=== PATIENT | female | born 2005 | race Caucasian/White ===

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

== ENCOUNTER 2025-02-28 11:52 | Emergency (ER) | payer BC, SELFPAY ==
[2025-02-28 12:00] VITALS: BP 120/78; PULSE 84; RESP 16; TEMP 36.8; O2SAT 99
--- NOTE | 2025-02-28 12:31 | ED.EYEPROB ---
HPI - Eye Problem General Chief complaint: Eye Problems Stated complaint: Eye Irritation/Sinus Infection Symptoms Time Seen by Provider: 02/28/25 12:23 Source: patient and RN notes reviewed Mode of arrival: ambulatory Limitations: no limitations History of Present Illness HPI Narrative: 19-year-old female patient presents today with a 10 day history of nasal congestion and sinus pressure, scratchy throat, sneezing. More recently she has started experiencing left ear clogging. Denies fever or shortness of breath. Yesterday her left eye became reddened and crusty. She has tried some [id number] eyedrops in flushing without much improvement, as well as using Sudafed and DayQuil. No history of asthma. No recent antibiotic use. Related Data Home Medications ?Medication ?Instructions ?Recorded ?Confirmed ?Last Taken ?Type cholecalciferol (vitamin D3) 50 65 mcg PO DAILY 05/11/24 02/28/25 Unknown History mcg (2,000 unit) tablet (D3 DOTS) escitalopram oxalate 20 mg tablet 20 mg PO DAILY 02/28/25 02/28/25 Unknown History ferrous sulfate 325 mg (65 mg 325 mg PO DAILY 02/28/25 02/28/25 Unknown History iron) tablet (iron) mecobalamin (vitamin B12) 1 tablet PO DAILY 02/28/25 02/28/25 Unknown History Allergies Allergy/AdvReac Type Severity Reaction Status Date / Time No Known Allergies Allergy Verified 02/28/25 11:57 [facility] Comments At time of signature, I have reviewed and agree with nursing past medical, surgical, social and family history unless otherwise noted. Please see nursing chart for further information. There is no relevant family history pertinent to the presenting complaint Exam Narrative: GENERAL: Mildly ill-appearing, well-nourished, and in no acute distress. HEAD: Normocephalic, atraumatic. EYES: EOMI. PERRL. Right eye normal. Left eye: Mildly injected conjunctiva. No active drainage. Lids and lashes normal. ENT: Mucous membranes pink and moist. Nares congested with rhinorrhea. TMs normal bilaterally. Throat normal. Uvula midline. NECK: Normal AROM. Supple. No lymphadenopathy. CHEST: No respiratory distress. Clear to auscultation. HEART: Regular rate and rhythm. No murmur appreciated. EXTREMITIES: Normal range of motion. No edema. SKIN: Warm, dry, no rash. Capillary refill normal. Normal skin turgor. NEURO: No focal deficits. Alert and oriented x3. Gait steady. PSYCH: Normal affect. No signs of depression or anxiety. Course Course Level of Care: Express Care Visit Vital Signs Vital signs: Vital Signs Temperature 98.2 F 02/28/25 12:00 Pulse Rate 84 02/28/25 12:00 Respiratory Rate 16 02/28/25 12:00 Blood Pressure 120/78 02/28/25 12:00 Pulse Oximetry 99 02/28/25 12:00 Temperature 98.2 F 02/28/25 12:00 Pulse Rate 84 02/28/25 12:00 Respiratory Rate 16 02/28/25 12:00 Blood Pressure 120/78 02/28/25 12:00 Pulse Oximetry 99 02/28/25 12:00 Reviewed MDM - Eye Problem MDM Narrative Medical decision making narrative: 19-year-old female patient presents today with a 10 day history of nasal congestion and sinus pressure, scratchy throat, sneezing. More recently she has started experiencing left ear clogging. Denies fever or shortness of breath. Yesterday her left eye became reddened and crusty. She has tried some [id number]-kabwntx eyedrops in flushing without much improvement, as well as using Sudafed and DayQuil. No history of asthma. No recent antibiotic use. Upon exam, patient is mildly ill appearing with nasal congestion. Left eye it has mildly injected conjunctiva. Due to persistent symptoms, she will be treated with Augmentin for sinusitis. Due to unilateral injected conjunctiva and crusting of the eye, she will also be treated for bacterial conjunctivitis with Polytrim. Patient agrees with plan. Vital signs stable. Anticipatory guidance given. Differential Diagnosis Differential diagnosis: Likely corneal abrasion, conjunctivitis and other (URI, sinusitis, otitis media, otitis externa, ruptured TM, serous otitis) Critical Care Time Critical Care Time Critical Care Time: No Discharge Plan Discharge Clinical Impression: Bacterial conjunctivitis Sinusitis Qualifiers: Sinusitis location: unspecified location Chronicity: acute Recurrence: non-recurrent Qualified Code(s): J01.90 - Acute sinusitis, unspecified Patient Disposition: Home Condition: Stable Instructions: Antibiotic Form, Sinusitis (ED), Conjunctivitis (ED) Additional Instructions: Please take the Augmentin and use the eyedrops as directed. Wash hands frequently before and after use of the eyedrops pseudo reinfect herself. Use OTC medication for your upper respiratory symptoms as needed. Follow-up with your PCP in 3 days if symptoms are not improving. Patient Language: Upper Sorbian Prescriptions: New polymyxin B sulf-trimethoprim 10,000 unit- 1 mg/mL drops 1 drp LEFT EYE QID 7 Days Qty: 10 0RF amoxicillin-pot clavulanate 875-125 mg tablet 1 tablet PO Q12H 7 Days Qty: 14 0RF No Action escitalopram oxalate 20 mg tablet 20 mg PO DAILY mecobalamin (vitamin B12) [B12 Active] 1 tablet PO DAILY ferrous sulfate [iron] 325 mg (65 mg iron) tablet 325 mg PO DAILY cholecalciferol (vitamin D3) [D3 DOTS] 50 mcg (2,000 unit) tablet 65 mcg PO DAILY Follow-up/Referrals: PHYSICIAN,MAINTENANCE DIRECTOR [Primary Care Provider, Internal Medicine] Stand Alone Forms: Work/School Release IP Time of Disposition: 12:37
== END 2025-02-28 12:41 | disposition home or self-care (01) ==
PROVIDERS: Emergency Provider Nurse Practitioner
DX: H10.9 Unspecified conjunctivitis (principal); J01.90 Acute sinusitis, unspecified; F32.A Depression, unspecified
CPT/HCPCS: 99213; G0463